=== PATIENT | female | born 1985 | race Caucasian/White ===

== ENCOUNTER 2022-01-16 18:42 | Emergency (ER) | payer MEDICAID, OTHER ==
--- NOTE | 2022-01-16 18:54 | ED General ---
General Stated Complaint: COUGH,MIGRAINE Source of Information: Patient Exam Limitations: No Limitations History of Present Illness Date Seen by Provider: Jan 16, 2022 Time Seen by Provider: 18:44 Initial Comments 36-year-old female with past medical history of chronic headaches coming in due to a headache. She states she tested positive for COVID 7 days ago, symptoms have not fully gotten better, and this headache started roughly 3 days ago. Has not had any fever, neck stiffness, vision changes, weakness, numbness, chest pain, shortness of breath, or any other concerns associated with it. She did take Fioricet which helped somewhat. She states this feels similar to her typical headaches, but lasted longer than normal. She is otherwise denying any other acute complaints. Allergies and Home Medications Allergies Coded Allergies: amoxicillin (Verified Allergy, Unknown, 01/16/22) bupropion (Verified Allergy, Unknown, 01/16/22) buspirone (Verified Allergy, Unknown, 01/16/22) divalproex sodium (Verified Allergy, Unknown, 01/16/22) latex (Verified Allergy, Unknown, 01/16/22) risperidone (Verified Allergy, Unknown, 01/16/22) Patient Home Medication List Home Medication List Reviewed: Yes Review of Systems Review of Systems Constitutional: No fever EENTM: no symptoms reported Respiratory: no symptoms reported Cardiovascular: no symptoms reported Gastrointestinal: no symptoms reported Genitourinary: no symptoms reported Musculoskeletal: no symptoms reported Skin: no symptoms reported Psychiatric/Neurological: See HPI Hematologic/Lymphatic: No Symptoms Reported Immunological/Allergic: no symptoms reported All Other Systems Reviewed Negative Unless Noted: Yes Past Rvgufxg-Wxyqip-Hvehyv Hx Patient Social History Substance use?: No Past Medical History Surgeries: Yes Section Physical Exam Vital Signs Vital Signs - First Documented 01/16/22 18:47 Pulse 78 Resp 18 B/P (MAP) 135/89 (104) Pulse Ox 100 O2 Delivery Room Air Capillary Refill : Height, Weight, BMI Height: '" Weight: lbs. oz. kg; BMI Method: General Appearance: No Apparent Distress, WD/WN Eyes: Bilateral Eye Normal Inspection, Bilateral Eye PERRL, Bilateral Eye EOMI HEENT: PERRL/EOMI, Normal ENT Inspection, Pharynx Normal Neck: Full Range of Motion, Normal Inspection, Non Tender, Supple Respiratory: Chest Non Tender, Lungs Clear, Normal Breath Sounds, No Accessory Muscle Use, No Respiratory Distress Cardiovascular: Regular Rate, Rhythm, No Edema, Normal Peripheral Pulses Gastrointestinal: Normal Bowel Sounds, Non Tender, Soft; No Distended, No Guarding Back: Normal Inspection, No CVA Tenderness, No Vertebral Tenderness Extremity: Normal Capillary Refill, Normal Inspection, Normal Range of Motion, Non Tender, No Calf Tenderness Neurologic/Psychiatric: Alert, Oriented x3, No Motor/Sensory Deficits, Normal Mood/Affect, manager location II-XII Norm as Tested, Other (normal gait) Skin: Normal Color, Warm/Dry Lymphatic: No Adenopathy Progress/Results/Core Measures Suspected Sepsis SIRS Temperature: Pulse: Respiratory Rate: Blood Pressure / Mean: Results/Orders My Orders Orders - DALLAS ARIAS MD Prochlorperazine Injection (Compazine In (01/16/22 19:00) Diphenhydramine Injection (Benadryl Inje (01/16/22 19:00) Ketorolac Injection (Toradol Injection) (01/16/22 19:00) Medications Given in ED Current Medications Medications Dose Ordered Sig/Zo Route Start Time Stop Time Status Last Admin Dose Admin Diphenhydramine HCl 25 mg ONCE ONCE IM 01/16/22 19:00 01/16/22 19:01 DC 01/16/22 19:03 25 MG Ketorolac Tromethamine 15 mg ONCE ONCE IM 01/16/22 19:00 01/16/22 19:01 DC 01/16/22 19:02 15 MG Prochlorperazine Edisylate 10 mg ONCE ONCE IM 01/16/22 19:00 01/16/22 19:01 DC 01/16/22 19:03 10 MG Vital Signs/I&O 01/16/22 01/16/22 18:47 19:01 Pulse 78 78 Resp 18 18 B/P (MAP) 135/89 (104) 135/89 Pulse Ox 100 100 O2 Delivery Room Air Room Air Capillary Refill : Progress Note : Progress Note 36-year-old female with above history coming in due to headache in the setting of being, positive within the past week. ABCs were intact and vitals were stable on presentation. She has neuro intact on exam with no concerning findings. Seems like a typical headache for her, likely compounded because of COVID. We will give the patient medications to help with this. I believe she is otherwise stable for discharge with outpatient follow-up. She was sent home with strict return precautions Departure Impression Primary Impression: Headache Qualified Codes: G44.209 - Tension-type headache, unspecified, not intractable Additional Impression: COVID-19 Disposition: 01 HOME, SELF-CARE Condition: Stable Departure-Patient Inst. Decision time for Depature: 19:15 Patient Instructions: Headache, Adult (DC), COVID-19 ED Add. Discharge Instructions: You likely are not fully all of your COVID, and that is likely making your regular headaches worse. I would continue to take your Fioricet as needed, drink plenty fluids, you can add ibuprofen to your regimen as well to help with your headache. Follow-up with your regular doctor if not improving after the next couple of days. Scripts Butalb/Acetaminophen/Caffeine (Awjvrm-Auvunxoe-Rzhs 50-300-40) 50 Mg-300 Mg-40 Mg Capsule 1 EACH PO Q6H PRN for headache for 7 Days, #28 CAP Prov: DALLAS ARIAS MD 01/16/22 Work/School Note: Work Release Form Date Seen in the Emergency Department: Jan 16, 2022 Return to Work: Jan 18, 2022 Restrictions: No Restrictions DALLAS ARIAS MD Jan 16, 2022 18:54
[2022-01-16] MEDS ORDERED: diphenhydrAMINE 50 MG/ML INJ (BENADRYL) IM ONE (19:00)
[2022-01-16] MEDS ORDERED: KETOROLAC 30 MG/ML VIAL IM ONE (19:00)
[2022-01-16] MEDS ORDERED: PROCHLORPERAZINE 10 MG/2ML INJ (COMPAZINE) IM ONE (19:00)
[2022-01-16 19:01] VITALS: BP 135/89
[2022-01-16] MEDS ORDERED: BUTA1CAP41 PO (19:24)
== END 2022-01-16 19:08 | disposition home or self-care (01) ==
LOC: ER FS 18:44
DX: U07.1 COVID-19 (principal); R51.9 Headache, unspecified; Z91.040 Latex allergy status; Z73.0 Burn-out; Z28.310 Unvaccinated for COVID-19
CPT/HCPCS: 99284